=== PATIENT | female | born 1985 | race Caucasian/White ===

== ENCOUNTER 2017-04-24 15:38 | Emergency (ER) | payer MEDICAID ==
[2017-04-24 15:39] VITALS: BMI 30.7
[2017-04-24 15:46] VITALS: BP 130/82; PULSE 90; RESP 18; TEMP 98.1; O2SAT 100
[2017-04-24] MEDS ORDERED: Naproxen 550 mg Tab PO STA (15:54)
[2017-04-24] MEDS ORDERED: Naproxen 550 mg Tab PO ONE (16:05)
--- NOTE | 2017-04-24 16:21 | C.PDOC ---
History Of Present Illness Pt fell today injuring her left ring finger. She also sustained mild abrasion to left thigh. Time Seen by Provider: 04/24/17 15:49 Chief Complaint (Nursing): Finger,Hand,&Wrist History Per: Patient Onset/Duration Of Symptoms: Hrs (today), Sudden Onset Current Symptoms Are (Timing): Still Present Severity: Moderate Hands/Wrist (Pic): 1 - pain/mild swelling Exacerbating Factor(s): Movement Additional History Per: Prior Records Past Medical History Reviewed: Historical Data, Nursing Documentation, Vital Signs Vital Signs: Last Vital Signs Temp 98.1 F 04/24/17 15:42 Pulse 90 04/24/17 15:42 Resp 18 04/24/17 15:42 BP 130/82 04/24/17 15:42 Pulse Ox 100 04/24/17 15:42 - Medical History PMH: Asthma, Bronchitis - [facility] Procedures INJECT/INFUSE NEC (09/25/12) NEBULIZER THERAPY (05/12/04) VENOUS PUNCTURE NEC (01/30/13) Family History: States: Unknown Family Hx - Social History Hx Tobacco Use: Yes Hx Alcohol Use: No Hx Substance Use: Yes - Immunization History Hx Tetanus Toxoid Vaccination: Yes Hx Influenza Vaccination: Yes Hx Pneumococcal Vaccination: Yes Review Of Systems Except As Marked, All Systems Reviewed And Found Negative. Constitutional: Negative for: Fever Cardiovascular: Negative for: Chest Pain Respiratory: Negative for: Shortness of Breath Gastrointestinal: Negative for: Vomiting, Abdominal Pain Musculoskeletal: Positive for: Hand Pain (left ring finger). Negative for: Neck Pain Neurological: Negative for: Weakness, Numbness, Headache Physical Exam - Physical Exam Appears: Non-toxic, No Acute Distress Skin: Normal Color, Warm, Dry Head: Atraumatic, Normacephalic Eye(s): bilateral: Normal Inspection, PERRL, EOMI Neck: Normal ROM, No Midline Cervical Tenderness, No Step Off Deformity, Supple Chest: Symmetrical, No Deformity Extremity: Normal ROM, Tenderness (around PIP of left 4th finger with mild swelling.), Capillary Refill (wnl), Other (Very superficial/mild abrasion to left thigh) Neurological/Psych: Oriented x3, Normal Motor, Normal Sensation ED Course And Treatment O2 Sat by Pulse Oximetry: 100 Pulse Ox Interpretation: Normal - Other Rad Left 4th finger x-rays X-Ray: Interpreted by Me, Viewed By Me Interpretation: Possible very small avulsion fracture. No dislocation. Progress Note: Finger splint was placed on left 4th finger by me. Reassessment Condition: Improved Disposition Counseled Patient/Family Regarding: Studies Performed, Diagnosis, Need For Followup, Rx Given - Disposition Referrals: Marin Hilliard MD [Staff Provider] - Disposition: HOME/ ROUTINE Disposition Time: 16:24 Condition: STABLE Additional Instructions: Keep your finger in the splint provided until fully healed. Follow up with a Hand specialist for further evaluation and treatment. Return to the ER if you develop worsening of symptoms or if you have any other concerns. Prescriptions: Naproxen [Naprosyn] 1 tab PO BID PRN #20 tab PRN Reason: Pain Instructions: Finger Sprain (DC) Forms: [facility] (Armenian), General Discharge Instructions - Clinical Impression Clinical Impression: Injury of left ring finger
--- NOTE | 2017-04-24 16:29 | RAD ---
PROCEDURE: Left ring finger radiographs. HISTORY: Pain s/p injury today COMPARISON: None. TECHNIQUE: AP radiograph of the left hand, as well as spot oblique and lateral images of left ring finger were obtained. FINDINGS: LEFT RING FINGER: Left ring finger normal, without fracture of focal lesion. Remainder of the left hand (as seen on the AP view) is grossly unremarkable. JOINTS: Normal. SOFT TISSUES: Normal. OTHER FINDINGS: None. IMPRESSION: No demonstrated fracture dislocation.
== END 2017-04-24 16:31 | disposition home or self-care (01) ==
LOC: C.ER 15:38
DX: S69.92XA Unspecified injury of left wrist, hand and finger(s), initial encounter (principal); W23.0XXA Caught, crushed, jammed, or pinched between moving objects, initial encounter; Y93.E6 Activity, residential relocation; Y92.89 Other specified places as the place of occurrence of the external cause